=== PATIENT | female | born 1975 | race African-American/Black ===

== ENCOUNTER 2017-10-25 11:54 | Emergency (ER) | payer MEDICARE, SELFPAY ==
[2017-10-25 11:56] VITALS: BP 123/85; PULSE 69; RESP 18; TEMP 36.8; O2SAT 98; BMI 41.3
--- NOTE | 2017-10-25 12:26 | CT_ITS ---
STUDY: CT SOFT TISSUE NECK WITH CONTRAST REASON FOR EXAM: Female, 42 years old. Right-sided neck pain/jaw pain following recent dental extraction. RADIATION DOSAGE (If Supplied By Facility): CTDIvol = ( 20.66 ) mGy, DLP = ( 681.13 ) mGycm TECHNIQUE: The patient was scanned in a multi-detector CT scanner. High resolution transaxial imaging was performed following intravenous administration of 100 ml of Isovue 300 contrast material. Sagittal and coronal images were reconstructed. Individualized dose optimization techniques were used for this CT. COMPARISON: None. FINDINGS: Normal bilateral parotid glands. Normal bilateral cook helper dessert spaces. Normal bilateral parapharyngeal spaces. Normal bilateral carotid spaces. Normal bilateral sublingual and submandibular glands and spaces. Normal visualized nasopharynx. Normal retropharyngeal space. Normal perivertebral space. Normal visualized bilateral faucial tonsils. The visualized tongue, tongue base and oropharynx are normal. The visualized cervical lymph nodes (levels I-) are within normal size limits, and maintain normal morphology. There is no demonstrated solid or cystic mass lesion. There is no abnormal contrast enhancement. Normal epiglottis, bilateral vallecula and hypopharynx. The pre-epiglottic and paraglottic adipose spaces are normal. Normal visualized bilateral piriform sinuses, aryepiglottic folds, vocal cords, and arytenoid-cricoid articulations. Normal subglottic trachea. Normal bilateral lobes of the thyroid gland. Normal visualized pulmonary apices. Normal visualized paranasal sinuses. Normal visualized cervical spine. CT/Soft Tissue Neck WITH Contrast IMPRESSION: Normal enhanced CT examination of the soft tissues of the neck. Electronically Signed: Kirk Daley MD at 14:44 EDT Tel [phone], Service support ,
[2017-10-25] MEDS: Morphine 4 MG/ML Syringe IV (12:55)
[2017-10-25] MEDS: Ondansetron 4 MG/2 ML Vial IV (12:55)
--- NOTE | 2017-10-25 12:56 | ED.VISSUMM ---
- ER Visit Summary Date of Service: 10/25/17 Chief Complaint: Right-sided jaw pain History of Present Illness: The patient is a 42 F with right-sided jaw pain and ear pain ?2 weeks. Patient states she had a tooth extracted 2.5 weeks ago and she has been having persistent pain since that time. She has been on multiple antibiotics and steroids. She was seen by ENT today and sent to the ED for CT scan. She states she has had subjective fever. She called her dentist who does not feel it is related to the dental procedure. Physical Examination: Vitals are stable. Patient is afebrile. Alert no acute distress. HEENT exam right mandible tenderness with no swelling. TM normal. No mastoid tenderness. No intraoral fluctuance. No sublingual edema. Neck is supple. Lungs are clear and equal bilaterally. Heart is regular rate and rhythm. Extremities are unremarkable. Skin is warm and dry. Remainder of exam is unremarkable. Emergency Department Course and Treatment: Patient given morphine, Zofran. Discussed with Dr. Tate. He does not feel that her pain is related to her ear. He recommends CT soft tissue neck through the ear to rule out any other causes. She is given Benadryl and Solu-Medrol IV prior to CT scan. CT soft tissue neck is normal enhanced CT examination of the soft tissues of the neck. Patient is advised to follow-up with oral surgeon. She is given a short course of [place]. Advised return to ED for worsening complaints. Disposition: Discharge home Impression: Right jaw pain This note was generated with [employer] dictation software. It may contain incorrect words, spelling, and punctuation that were not noted in review of the chart prior to signing ED Disposition - Plan for ED Patient: Chief Complaint: Ear Problem Instructions: After a Tooth Extraction: Caring for Your Mouth Prescriptions: Hydrocodone Bitart/Apap 5-325 [[place] 5MG-325MG] 1 tablet PO Q6H PRN PRN 3 Days #12 tablet PRN Reason: Pain Referrals: Ubaldo Downing DDS [STAFF PHYSICIAN] - [facility] Doctor,Out of [NON-STAFF] -
[2017-10-25] MEDS: DiphenhydrAMINE 50 MG/ML Syringe 25 MG IV (13:00)
[2017-10-25] MEDS: MethylPREDNISolone 125 MG/2 ML Vial IV (13:00)
[2017-10-25] MEDS: Ketorolac 30 MG/ML Syringe IV (15:07)
--- NOTE | 2017-10-25 15:23 | ED.DEP ---
ED Disposition - Plan for ED Patient: Chief Complaint: Ear Problem Instructions: After a Tooth Extraction: Caring for Your Mouth Prescriptions: Hydrocodone Bitart/Apap 5-325 [[place] 5MG-325MG] 1 tablet PO Q6H PRN PRN 3 Days #12 tablet PRN Reason: Pain Referrals: [facility],Out of [NON-STAFF] - Ubaldo Downing DDS [STAFF PHYSICIAN] -
--- NOTE | 2017-10-25 15:25 | DCINST.ED_ITS ---
ED Disposition - Plan for ED Patient: Chief Complaint: Ear Problem Instructions: After a Tooth Extraction: Caring for Your Mouth Prescriptions: Hydrocodone Bitart/Apap 5-325 [[place] 5MG-325MG] 1 tablet PO Q6H PRN PRN 3 Days # 12 tablet PRN Reason: Pain Referrals: [facility],Out of [NON-STAFF] - Ubaldo Downing DDS [STAFF PHYSICIAN] -
[2017-10-25] MEDS: HYDROcodone Bitartrate/Apap 5/325 Tablet PO (15:40)
[2017-10-25 15:42] VITALS: BP 129/82; PULSE 74; RESP 16; O2SAT 98
== END 2017-10-25 15:44 | disposition home or self-care (01) ==
PROVIDERS: Emergency Provider Emergency Medicine
DX: R68.84 Jaw pain (principal)
CPT/HCPCS: 70491; 99284; Q9967; A4216; J2405